=== PATIENT | male | born 1935 | race American Indian/Alaskan Native ===

== ENCOUNTER 2018-04-17 17:20 | Inpatient (IN) | payer SELFPAY ==
[2018-04-17] MEDS ORDERED: D50W (25GM) Syringe IV ONE ×2 (17:27→17:33)
--- NOTE | 2018-04-17 17:42 | Emergency Department Report ---
HPI - General Time Seen by Provider: 04/17/18 17:27 - [facility] HPI: Room 22 The patient is an 82-year-old male presented with a chief complaint altered mental status. Per EMS the patient's last normal time was 09:00 the patient's daughter went to work. She returned at approximately 16:30 to find the patient slumped over in a chair. Per EMS the patient has been nonverbal and does not move the left side. EMS Accu-Chek was 42. Upon arrival to the ED left EJ IV was placed by myself and one amp of D50 was administered and the patient became A and O 4. Patient states he did not eat his breakfast/food today secondary to a sore throat. Patient states she began to feel "out of it" at approximately 14:00. Patient states she's had a productive cough for one day otherwise he d enies complaints currently Location: Mental state Duration: [See above] Quality: Unresponsive Severity: Severe Modifying factors: [see above] Context: [see above] Mode of transportation: [not driving] ED Past Medical Hx - Past Medical History Hx Diabetes: Yes - Surgical History Past Surgical History?: No - Social History Smoking Status: Never Smoker Substance Use Type: None ED Review of Systems ROS: Stated complaint: POSSIBLE STROKE Other details as noted in HPI Constitutional: no symptoms reported Eyes: denies: eye pain ENT: throat pain Respiratory: cough Cardiovascular: denies: chest pain Endocrine: other Gastrointestinal: denies: abdominal pain Genitourinary: denies: dysuria Musculoskeletal: denies: back pain Skin: denies: lesions (hypoglycemia) Neurological: other (altered mental status) Physical Exam - Physical Exam Physical Exam: GENERAL: The patient is well-developed well-nourished male lying on EMS stretche r unresponsive to verbal or tactile stimuli. After administration of D50 patient is a and O 4 and in no acute distress HEENT: Normocephalic. Atraumatic. Extraocular motions are intact. Patient has moist mucous membranes. NECK: Supple. Trachea midline CHEST/LUNGS: Clear to auscultation. There is no respiratory distress noted. HEART/CARDIOVASCULAR: Regular. There is no tachycardia. There is no gallop rub or murmur. ABDOMEN: Abdomen is soft, nontender. Patient has normal bowel sounds. There is no abdominal distention. SKIN: There is no rash. There is no edema. There is no diaphoresis. NEURO: The patient is awake, alert, and oriented. The patient is cooperative. The patient has no focal neurologic deficits. The patient has normal speech. Cranial nerves II through XII grossly intact, no drift. Instrumentation And Control Technician equal bilaterally. Moves all extremities well MUSCULOSKELETAL: There is no evidence of acute injury. ED Medical Decision Making - Lab Data Result diagrams: 04/17/18 17:54 04/17/18 17:54 Laboratory Tests 04/17/18 04/17/18 04/17/18 17:54 17:54 17:54 WBC 6.4 RBC 3.97 Hgb 10.1 L Hct 31.5 L MCV 79 L MCH 26 L MCHC 32 RDW 15.3 H Wilson % (Auto) New Product Trainer PT 13.1 INR 0.95 APTT 26.2 Sodium 138 Potassium 4.2 Chloride 98.5 Carbon Dioxide 21 L Anion Gap 23 BUN 48 H Creatinine 2.0 H Estimated GFR 39 BUN/Creatinine Ratio 24 Glucose 162 H Calcium 8.7 Total Bilirubin 0.20 AST 34 ALT 23 Alkaline Phosphatase 71 Total Creatine Kinase 127 CK-MB (CK-2) 1.6 CK-MB (CK-2) Rel Index 1.2 Troponin T < 0.010 NT-Pro-B Natriuret Pep 322.4 Total Protein 7.9 Albumin 4.0 Albumin/Globulin Ratio 1.0 - Radiology Data Radiology results: report reviewed (chest x-ray), image reviewed (chest x-ray) interpreted by me: Chest x-ray-no focal infiltrates, no pneumothorax [facility] [address] [place] [address] XRay Report Signed Patient: RUSTY STEELE MR#: [id number] : 1935 Acct:[id number] Age/Sex: 82 / M ADM Date: 04/17/18 Loc: ED Attending Dr: Ordering Physician: TAYLA WAGNER MD Date of Service: 04/17/18 Procedure(s): XR chest 1V ap Accession Number(s): [id number] cc: TAYLA WAGNER MD Fluoro Time In Minutes: FINAL REPORT EXAM: XR CHEST 1V AP HISTORY: cough TECHNIQUE: upright single view chest PRIORS: None. FINDINGS: Cardiac and mediastinal contours are unremarkable. No focal pulmonary infiltrate is identified. No pleural fluid collection seen. Pulmonary vasculature is unremarkable. IMPRESSION: Negative single-view chest Transcribed By: HI Dictated By: KIRK ZUNIGA MD Electronically Authenticated By: KIRK ZUNIGA MD Signed Date/Time: 04/17/181829 DD/ 31 TD/TT: 04/17/181831 - Differential Diagnosis hypoglycemia Critical care attestation.: If time is entered above; I have spent that time in minutes in the direct care of this critically ill patient, excluding procedure time. ED Disposition Clinical Impression: Hypoglycemia, Altered mental status Disposition: DC-09 OP ADMIT IP TO THIS HOSP Is pt being admited?: Yes Does the pt Need Aspirin: Yes Condition: Fair Referrals: PRIMARY CARE, [Primary Care Provider] - 3-5 Days Time of Disposition: 18:49 (hospitalist notified (Dr Tyler))
[2018-04-17 18:10] LABS: Hematocrit 31.5 % (35.5-45.6); Hemoglobin 10.1 gm/dl (11.8-15.2); Mean Corpuscular HGB Conc 32 % (32-34); Mean Corpuscular Volume 79 fl (84-94); Red Blood Count 3.97 M/mm3 (3.65-5.03); Red Cell Distribution Width 15.3 % (13.2-15.2)
[2018-04-17 18:12] LABS: Mean Corpuscular Hemoglobin 26 pg (28-32)
[2018-04-17 18:15] LABS: INR 0.95 (0.87-1.13)
[2018-04-17 18:16] LABS: Partial Thromboplastin Time 26.2 Sec. (24.2-36.6)
--- NOTE | 2018-04-17 18:30 | XRay Report ---
FINAL REPORT EXAM: XR CHEST 1V AP HISTORY: cough TECHNIQUE: upright single view chest PRIORS: None. FINDINGS: Cardiac and mediastinal contours are unremarkable. No focal pulmonary infiltrate is identified. No pleural fluid collection seen. Pulmonary vasculature is unremarkable. IMPRESSION: Negative single-view chest
[2018-04-17 18:32] LABS: Creatine Kinase MB 1.6 ng/mL (0.0-4.0)
[2018-04-17 18:35] LABS: Alanine Aminotransferase 23 units/L (7-56); BUN/Creatinine Ratio 24; Blood Urea Nitrogen 48 mg/dL (9-20); Calcium 8.7 mg/dL (8.4-10.2); Hemolysis Index 7
[2018-04-17 18:57] LABS: Basophils % (Manual) 0 % (0.0-1.8); Eosinophils % (Manual) 0 % (0.0-4.3); RBC Morphology Normal; Total Cells Counted 100
[2018-04-17 19:05] LABS: Platelet Count 236 K/mm3 (140-440)
--- NOTE | 2018-04-17 19:20 | History and Physical Report ---
History of Present Illness Chief complaint: confused History of present illness: 82 YO Male with DM, Obesity presents to ED for evaluation. Pt is confused and unable to provide history. Pt history taken history taken from ED staff, and EMS. As per staff, the patient was found confused, and slumped over in his chair by his daughter around 1630hrs. EMS notified and upon arrival the patient was found to be confused, and hypoglycemic with serum glucose of 42. A code stroke was called, due to weakness, and the patient was transported to [facility] for further care and evaluation. Pt seen and evaluated in ED and was found to have Encephalopathy as well ad Acute Renal Failure. Pt symptoms improved with D50. Pt admitted to [facility] Past History Past Medical History: diabetes, other (Obesity) Past Surgical History: No surgical history (reviewed) Social history: single. denies: smoking, alcohol abuse, prescription drug abuse Family history: diabetes, hypertension Medications and Allergies Active Meds: Active Medications Sodium Chloride (Nacl 0.45%) 1,000 mls @ 200 mls/hr IV DIRECT JANET Review of Systems ROS unobtainable: due to mental status Exam - Constitutional Vitals: Temp Pulse Resp BP Pulse Ox 98.3 F 98 H 161/69 98 04/17/18 17:20 04/17/18 17:20 04/17/18 17:20 04/17/18 17:20 General appearance: Present: mild distress, obese - EENT Eyes: Present: PERRL, miosis ENT: hearing intact, clear oral mucosa - Neck Neck: Present: supple, normal ROM - Respiratory Respiratory effort: normal Respiratory: bilateral: CTA - Cardiovascular Heart Sounds: Present: S1 & S2. Absent: rub, click - Extremities Extremities: pulses symmetrical, No edema Peripheral Pulses: within normal limits - Abdominal General gastrointestinal: Present: soft, non-tender, non-distended, normal bowel sounds Male genitourinary: Present: normal - Integumentary Integumentary: Present: clear, warm, dry - Musculoskeletal Musculoskeletal: generalized weakness - Psychiatric Psychiatric: no memory intact - Neurologic Neurologic: CNII-XII intact, moves all extremities Results - Labs CBC & Chem 7: 04/17/18 17:54 04/17/18 17:54 Labs: Abnormal lab results 04/17/18 04/17/18 Range/Units 17:54 17:54 Hgb 10.1 L (11.8-15.2) gm/dl Hct 31.5 L (35.5-45.6) % MCV 79 L (84-94) fl MCH 26 L (28-32) pg RDW 15.3 H (13.2-15.2) % Lymphocytes % (Manual) 11.0 L (13.4-35.0) % Monocytes % (Manual) 25.0 H (0.0-7.3) % Lymphocytes # (Manual) 0.7 L (1.2-5.4) K/mm3 Monocytes # (Manual) 1.6 H (0.0-0.8) K/mm3 Carbon Dioxide 21 L (22-30) mmol/L BUN 48 H (9-20) mg/dL Creatinine 2.0 H (0.8-1.5) mg/dL Glucose 162 H (75-100) mg/dL Assessment and Plan - Patient Problems (1) Encephalopathy Current Visit: Yes Status: Acute Plan to address problem: neuro checks, D 50, supportive care, CT head, neuro checks, (2) ARF (acute renal failure) with tubular necrosis Current Visit: Yes Status: Acute Plan to address problem: IVF resuscitation therapy, monitor uop q shift, repeat bmp to monitor serum creatnine, (3) Diabetes Current Visit: Yes Status: Acute Plan to address problem: ADA diet, insulin, accu check (4) DVT prophylaxis Current Visit: Yes Status: Acute Plan to address problem: SCD to BLE while in bed.
[2018-04-17] MEDS ORDERED: ZOFRAN IV PRN (19:21)
[2018-04-17] MEDS ORDERED: SODIUM CHLORIDE FLUSH SYRINGE 10 ML IV PRN (19:21)
[2018-04-17] MEDS ORDERED: NACL 0.45% 1,000 ML IV SCH (20:00)
[2018-04-18] MEDS: TYLENOL PO PRN ×3 (04:08→20:41)
[2018-04-18 05:32] LABS: Bacteria,Urine 2+ /HPF (Negative); Bilirubin,Urine NEG (Negative); Blood,Urine NEG (Negative); Color,Urine Yellow (Yellow); Mucus,Urine FEW /HPF; Protein,Urine <15 mg/dL mg/dL (Negative); Urobilinogen,Urine < 2.0 mg/dL (<2.0)
--- NOTE | 2018-04-18 08:10 | Cat Scan Report ---
CT HEAD WITHOUT CONTRAST: HISTORY: Confusion. TECHNIQUE: Sequential 2.5mm CT images. COMPARISON: none. FINDINGS: Cerebral Parenchyma: Within normal limits. Cerebellum: Within normal limits. Brainstem: Within normal limits. Ventricles: Normal. Sella: Normal. Extra-axial spaces: Normal. Basal Cisterns: Normal. Intracranial Hemorrhage: None. Midline Shift: None. Visualized Orbits: Normal. IMPRESSION: Cranial CT scan within normal limits.
[2018-04-18] MEDS: SODIUM CHLORIDE FLUSH SYRINGE 10 ML IV SCH ×3 (10:18→22:49)
--- NOTE | 2018-04-18 11:34 | Progress Note ---
Assessment and Plan Assessment and plan: Patient is 82 yo man with a history of hypertension and DM type 2 who presented to [facility] ED with AMS. per Chart: the patient was found confused, and slumped over in his chair by his daughter around 1630hrs. EMS notified and upon arrival the patient was found to be confused, and hypoglycemic with serum glucose of 42. A code stroke was called, due to weakness, and the patient was transported to [facility] for further care and evaluation. Pt seen and evaluated in ED and was found to have Encephalopathy as well ad Acute Renal Failure. Pt symptoms improved with D50. Pt admitted to [facility] * pCXR negative * CT head negative - Acute metabolic Encephalopathy Current Visit: Yes Status: Acute Plan to address problem: neuro checks, D 50, supportive care, CT head, neuro checks, - ARF (acute renal failure) with tubular necrosis Current Visit: Yes Status: Acute Plan to address problem: IVF resuscitation therapy, monitor uop q shift, repeat bmp to monitor serum creatnine, follow renal ultrasound - Diabetes with hypoglycemia Current Visit: Yes Status: Acute Plan to address problem: ADA diet, insulin, accu check I have asked the nurse to obtain home medications - DVT prophylaxis Current Visit: Yes Status: Acute Plan to address problem: SCD to BLE while in bed. -Mild low grad temp of 100.1F with UTI: start iv rocephin, follow urine ctx, blood ctx History Interval history: Patient was seen and examined. Follow-up on current diagnosis of AMS. Overnight uneventful. Patient denies any chest pain, shortness breath, nausea/vomiting or severe headaches. Imaging, nursing note, chart, labs and old chart reviewed. Discussed with patient. Hospitalist Physical - Physical exam Narrative exam: Gen: WDWN, NAD, Awake, Alert, Orientated x2, missed year; however, after multipl e hints he got the year correct HEENT: NCAT, EOMI, PERRL, OP Clear Neck: supple, no adenopathy, no thyromegaly, no JVD CVS/Heart: RRR, normal S1S2, pulses present bilaterally Chest/Lungs: CTA B, Symmetrical chest expansion, good air entry bilaterally GI/Abdomen: soft, NTND, good bowel sounds, no guarding or rebound /Bladder: no suprapubic tenderness, no CVA or paraspinal tenderness Extermity/Skin: no c/c/e, no obvious rash MSK: FROM x 4 Neuro: CN 2-12 grossly intact, no new focal deficits Psych: calm - Constitutional Vitals: Temp Pulse Resp BP Pulse Ox 98.6 F 104 H 18 115/68 100 04/18/18 07:31 04/18/18 07:31 04/18/18 07:31 04/18/18 07:31 04/18/18 07:31 General appearance: Present: mild distress, obese Results - Labs CBC & Chem 7: 04/17/18 17:54 04/17/18 17:54 Labs: Laboratory Last Values WBC 6.4 K/mm3 (4.5-11.0) 04/17/18 17:54 RBC 3.97 M/mm3 (3.65-5.03) 04/17/18 17:54 Hgb 10.1 gm/dl (11.8-15.2) L 04/17/18 17:54 Hct 31.5 % (35.5-45.6) L 04/17/18 17:54 MCV 79 fl (84-94) L 04/17/18 17:54 MCH 26 pg (28-32) L 04/17/18 17:54 MCHC 32 % (32-34) 04/17/18 17:54 RDW 15.3 % (13.2-15.2) H 04/17/18 17:54 Plt Count 236 K/mm3 (140-440) 04/17/18 17:54 Vilas % (Auto) Armature Repairer 04/17/18 17:54 Add Manual Diff Complete 04/17/18 17:54 Total Counted 100 04/17/18 17:54 Seg Neuts % (Manual) 64.0 % (40.0-70.0) 04/17/18 17:54 Band Neutrophils % 0 % 04/17/18 17:54 Lymphocytes % (Manual) 11.0 % (13.4-35.0) L 04/17/18 17:54 Reactive Lymphs % (Man) 0 % 04/17/18 17:54 Monocytes % (Manual) 25.0 % (0.0-7.3) H 04/17/18 17:54 Eosinophils % (Manual) 0 % (0.0-4.3) 04/17/18 17:54 Basophils % (Manual) 0 % (0.0-1.8) 04/17/18 17:54 Metamyelocytes % 0 % 04/17/18 17:54 Myelocytes % 0 % 04/17/18 17:54 Promyelocytes % 0 % 04/17/18 17:54 Blast Cells % 0 % 04/17/18 17:54 Nucleated RBC % Not Reportable 04/17/18 17:54 Seg Neutrophils # Man 4.1 K/mm3 (1.8-7.7) 04/17/18 17:54 Band Neutrophils # 0.0 K/mm3 04/17/18 17:54 Lymphocytes # (Manual) 0.7 K/mm3 (1.2-5.4) L 04/17/18 17:54 Abs React Lymphs (Man) 0.0 K/mm3 04/17/18 17:54 Monocytes # (Manual) 1.6 K/mm3 (0.0-0.8) H 04/17/18 17:54 Eosinophils # (Manual) 0.0 K/mm3 (0.0-0.4) 04/17/18 17:54 Basophils # (Manual) 0.0 K/mm3 (0.0-0.1) 04/17/18 17:54 Metamyelocytes # 0.0 K/mm3 04/17/18 17:54 Myelocytes # 0.0 K/mm3 04/17/18 17:54 Promyelocytes # 0.0 K/mm3 04/17/18 17:54 Blast Cells # 0.0 K/mm3 04/17/18 17:54 WBC Morphology Not Reportable 04/17/18 17:54 Hypersegmented Neuts Not Reportable 04/17/18 17:54 Hyposegmented Neuts Not Reportable 04/17/18 17:54 Hypogranular Neuts Not Reportable 04/17/18 17:54 Smudge Cells Not Reportable 04/17/18 17:54 Toxic Granulation Not Reportable 04/17/18 17:54 Toxic Vacuolation Not Reportable 04/17/18 17:54 Dohle Bodies Not Reportable 04/17/18 17:54 Pelger-Huet Anomaly Not Reportable 04/17/18 17:54 José Rods Not Reportable 04/17/18 17:54 Platelet Estimate Not Reportable 04/17/18 17:54 Clumped Platelets Not Reportable 04/17/18 17:54 Plt Clumps, EDTA Not Reportable 04/17/18 17:54 Large Platelets Not Reportable 04/17/18 17:54 Giant Platelets Not Reportable 04/17/18 17:54 Platelet Satelliting Not Reportable 04/17/18 17:54 Plt Morphology Comment Not Reportable 04/17/18 17:54 RBC Morphology Normal 04/17/18 17:54 Dimorphic RBCs Not Reportable 04/17/18 17:54 Polychromasia Not Reportable 04/17/18 17:54 Hypochromasia Not Reportable 04/17/18 17:54 Poikilocytosis Not Reportable 04/17/18 17:54 Anisocytosis Not Reportable 04/17/18 17:54 Microcytosis Not Reportable 04/17/18 17:54 Macrocytosis Not Reportable 04/17/18 17:54 Spherocytes Not Reportable 04/17/18 17:54 Pappenheimer Bodies Not Reportable 04/17/18 17:54 Sickle Cells Not Reportable 04/17/18 17:54 Target Cells Not Reportable 04/17/18 17:54 Tear Drop Cells Not Reportable 04/17/18 17:54 Ovalocytes Not Reportable 04/17/18 17:54 Helmet Cells Not Reportable 04/17/18 17:54 [place] Bodies Not Reportable 04/17/18 17:54 Pe Ell Rings Not Reportable 04/17/18 17:54 Ese Cells Not Reportable 04/17/18 17:54 Bite Cells Not Reportable 04/17/18 17:54 Crenated Cell Not Reportable 04/17/18 17:54 Elliptocytes Not Reportable 04/17/18 17:54 Acanthocytes (Spur) Not Reportable 04/17/18 17:54 Rouleaux Not Reportable 04/17/18 17:54 Hemoglobin C Crystals Not Reportable 04/17/18 17:54 Schistocytes Not Reportable 04/17/18 17:54 Malaria parasites Not Reportable 04/17/18 17:54 Amadeo Bodies Not Reportable 04/17/18 17:54 Hem Pathologist Commnt No 04/17/18 17:54 PT 13.1 Sec. (12.2-14.9) 04/17/18 17:54 INR 0.95 (0.87-1.13) 04/17/18 17:54 APTT 26.2 Sec. (24.2-36.6) 04/17/18 17:54 Sodium 138 mmol/L (137-145) 04/17/18 17:54 Potassium 4.2 mmol/L (3.6-5.0) 04/17/18 17:54 Chloride 98.5 mmol/L (98-107) 04/17/18 17:54 Carbon Dioxide 21 mmol/L (22-30) L 04/17/18 17:54 Anion Gap 23 mmol/L 04/17/18 17:54 BUN 48 mg/dL (9-20) H 04/17/18 17:54 Creatinine 2.0 mg/dL (0.8-1.5) H 04/17/18 17:54 Estimated GFR 39 ml/min 04/17/18 17:54 BUN/Creatinine Ratio 24 % 04/17/18 17:54 Glucose 162 mg/dL (75-100) H 04/17/18 17:54 POC Glucose 107 (70-105) H 04/17/18 20:36 Calcium 8.7 mg/dL (8.4-10.2) 04/17/18 17:54 Total Bilirubin 0.20 mg/dL (0.1-1.2) 04/17/18 17:54 AST 34 units/L (5-40) 04/17/18 17:54 ALT 23 units/L (7-56) 04/17/18 17:54 Alkaline Phosphatase 71 units/L (35-129) 04/17/18 17:54 Total Creatine Kinase 127 units/L (55-170) 04/17/18 17:54 CK-MB (CK-2) 1.6 ng/mL (0.0-4.0) 04/17/18 17:54 CK-MB (CK-2) Rel Index 1.2 (0-4) 04/17/18 17:54 Troponin T < 0.010 ng/mL (0.00-0.029) 04/17/18 17:54 NT-Pro-B Natriuret Pep 322.4 pg/mL (0-900) 04/17/18 17:54 Total Protein 7.9 g/dL (6.3-8.2) 04/17/18 17:54 Albumin 4.0 g/dL (3.9-5) 04/17/18 17:54 Albumin/Globulin Ratio 1.0 % 04/17/18 17:54 Urine Color Yellow (Yellow) 04/18/18 05:00 Urine Turbidity Slightly-cloudy (Clear) 04/18/18 05:00 Urine pH 5.0 (5.0-7.0) 04/18/18 05:00 Ur Specific [place] 1.009 (1.003-1.030) 04/18/18 05:00 Urine Protein <15 mg/dl mg/dL (Negative) 04/18/18 05:00 Urine Glucose (UA) Neg mg/dL (Negative) 04/18/18 05:00 Urine Ketones Neg mg/dL (Negative) 04/18/18 05:00 Urine Blood Neg (Negative) 04/18/18 05:00 Urine Nitrite Neg (Negative) 04/18/18 05:00 Urine Bilirubin Neg (Negative) 04/18/18 05:00 Urine Urobilinogen < 2.0 mg/dL (<2.0) 04/18/18 05:00 Ur Leukocyte Esterase Mod (Negative) 04/18/18 05:00 Urine WBC (Auto) 40.0 /HPF (0.0-6.0) H 04/18/18 05:00 Urine RBC (Auto) 1.0 /HPF (0.0-6.0) 04/18/18 05:00 U Epithel Cells (Auto) < 1.0 /HPF (0-13.0) 04/18/18 05:00 Urine Bacteria (Auto) 2+ /HPF (Negative) 04/18/18 05:00 Urine Mucus Few /HPF 04/18/18 05:00
[2018-04-18] MEDS ORDERED: D50W (25GM) Syringe IV PRN (12:00)
[2018-04-18] MEDS: ROCEPHIN/NS 1 GM/50 ML 1 GM/50 ML BAG IV SCH (14:11)
[2018-04-18 14:27] LABS: Iron 27 ug/dL (49-181)
[2018-04-18 14:28] LABS: Total Iron Binding Capacity 224 mcg/dL (250-450)
--- NOTE | 2018-04-18 18:55 | Ultrasound Report ---
FINAL REPORT PROCEDURE: US RENAL BILAT TECHNIQUE: Real-time sonography in multiple planes of the kidneys, ureters and urinary bladder was p erformed with image documentation. CPT 11178 HISTORY: Acute renal failure COMPARISON: No prior studies are available for comparison. FINDINGS: RIGHT kidney: Normal echotexture. No hydronephrosis. There are 2 simple cysts present. Larger cyst me asures up to 2.6 centimeters. Length: 11.3 cm. LEFT kidney: There is a simple cyst in the upper pole which measures up to 2.6 centimeters. No hydron ephrosis. Length: 10.9cm. Bladder: Normal. IMPRESSION: Bilateral renal cysts. No hydronephrosis bilaterally.
[2018-04-18] MEDS: HumaLOG SUB-Q SCH (22:49)
[2018-04-19] MEDS: HumaLOG SUB-Q SCH ×4 (09:03→23:12)
[2018-04-19] MEDS: ROCEPHIN/NS 1 GM/50 ML 1 GM/50 ML BAG IV SCH (10:21)
[2018-04-19] MEDS: SODIUM CHLORIDE FLUSH SYRINGE 10 ML IV SCH ×2 (10:21→23:15)
[2018-04-19] MEDS ORDERED: ULTRAM PO PRN (14:08)
[2018-04-19] MEDS ORDERED: GUAIFENESIN 400 MG PO PRN (14:08)
--- NOTE | 2018-04-19 14:18 | Progress Note ---
Assessment and Plan Assessment and plan: Patient is 82 yo man with a history of hypertension and DM type 2 who presented to [facility] ED with AMS. per Chart: the patient was found confused, and slumped over in his chair by his daughter around 1630hrs. EMS notified and upon arrival the patient was found to be confused, and hypoglycemic with serum glucose of 42. A code stroke was called, due to weakness, and the patient was transported to [facility] for further care and evaluation. Pt seen and evaluated in ED and was found to have Encephalopathy as well ad Acute Renal Failure. Pt symptoms improved with D50. Pt admitted to [facility] pCXR negative CT head negative - Acute metabolic Encephalopathy, likely due to hypoglycemia dc glipizide, A1c 7.3. Dextrose as needed - ARF (acute renal failure) with tubular necrosis renal ultrasound wnl, continue IV fluids, follow-up BMP in the morning Afib with RVR Restart home dose of metoprolol - Diabetes with hypoglycemia Discontinue glipizide, dextrose as needed, A1c 7.3 microcytic anemia: follow up on iron studies, ferritin, fobt - DVT prophylaxis SCD to BLE while in bed. UTI; cont rocephin, fup urine cx History Interval history: Review of systems Constitutional: No fevers, no malaise, no joint pains CVS: No chest pain, no orthopnea, no dyspnea on exertion, no pedal edema GI: No abdominal pain, no diarrhea, no vomiting, no constipation Respiratory: No shortness of breath, no wheezing, no coughing Hospitalist Physical - Physical exam Narrative exam: General.: Appears well, no distress, nontoxic HEENT: Moist mucous membranes, extraocular muscles intact, no lymphadenopathy Neck: supple Cardiac: S1-S2 heard Lungs: clear to auscultation bilaterally Abdomen: soft , nontender, nondistended, bowel sounds positive Extremities: no edema clubbing or cyanosis Skin: no rash or lesions Neurologic: no gross focal deficits Psych: appropriate behavior, appropriate mood, corporative, judgment intact - Constitutional Vitals: Temp Pulse Resp BP Pulse Ox 97.9 F 156 H 20 117/73 97 04/19/18 07:58 04/19/18 07:58 04/19/18 07:58 04/19/18 07:58 04/19/18 07:58 General appearance: Present: mild distress, obese Results - Labs CBC & Chem 7: 04/17/18 17:54 04/17/18 17:54 Labs: Laboratory Last Values WBC 6.4 K/mm3 (4.5-11.0) 04/17/18 17:54 RBC 3.97 M/mm3 (3.65-5.03) 04/17/18 17:54 Hgb 10.1 gm/dl (11.8-15.2) L 04/17/18 17:54 Hct 31.5 % (35.5-45.6) L 04/17/18 17:54 MCV 79 fl (84-94) L 04/17/18 17:54 MCH 26 pg (28-32) L 04/17/18 17:54 MCHC 32 % (32-34) 04/17/18 17:54 RDW 15.3 % (13.2-15.2) H 04/17/18 17:54 Plt Count 236 K/mm3 (140-440) 04/17/18 17:54 [place] % (Auto) Automation Tender 04/17/18 17:54 Add Manual Diff Complete 04/17/18 17:54 Total Counted 100 04/17/18 17:54 Seg Neuts % (Manual) 64.0 % (40.0-70.0) 04/17/18 17:54 Band Neutrophils % 0 % 04/17/18 17:54 Lymphocytes % (Manual) 11.0 % (13.4-35.0) L 04/17/18 17:54 Reactive Lymphs % (Man) 0 % 04/17/18 17:54 Monocytes % (Manual) 25.0 % (0.0-7.3) H 04/17/18 17:54 Eosinophils % (Manual) 0 % (0.0-4.3) 04/17/18 17:54 Basophils % (Manual) 0 % (0.0-1.8) 04/17/18 17:54 Metamyelocytes % 0 % 04/17/18 17:54 Myelocytes % 0 % 04/17/18 17:54 Promyelocytes % 0 % 04/17/18 17:54 Blast Cells % 0 % 04/17/18 17:54 Nucleated RBC % Not Reportable 04/17/18 17:54 Seg Neutrophils # Man 4.1 K/mm3 (1.8-7.7) 04/17/18 17:54 Band Neutrophils # 0.0 K/mm3 04/17/18 17:54 Lymphocytes # (Manual) 0.7 K/mm3 (1.2-5.4) L 04/17/18 17:54 Abs React Lymphs (Man) 0.0 K/mm3 04/17/18 17:54 Monocytes # (Manual) 1.6 K/mm3 (0.0-0.8) H 04/17/18 17:54 Eosinophils # (Manual) 0.0 K/mm3 (0.0-0.4) 04/17/18 17:54 Basophils # (Manual) 0.0 K/mm3 (0.0-0.1) 04/17/18 17:54 Metamyelocytes # 0.0 K/mm3 04/17/18 17:54 Myelocytes # 0.0 K/mm3 04/17/18 17:54 Promyelocytes # 0.0 K/mm3 04/17/18 17:54 Blast Cells # 0.0 K/mm3 04/17/18 17:54 WBC Morphology Not Reportable 04/17/18 17:54 Hypersegmented Neuts Not Reportable 04/17/18 17:54 Hyposegmented Neuts Not Reportable 04/17/18 17:54 Hypogranular Neuts Not Reportable 04/17/18 17:54 Smudge Cells Not Reportable 04/17/18 17:54 Toxic Granulation Not Reportable 04/17/18 17:54 Toxic Vacuolation Not Reportable 04/17/18 17:54 Dohle Bodies Not Reportable 04/17/18 17:54 Pel[place]uet Anomaly Not Reportable 04/17/18 17:54 José Rods Not Reportable 04/17/18 17:54 Platelet Estimate Not Reportable 04/17/18 17:54 Clumped Platelets Not Reportable 04/17/18 17:54 Plt Clumps, EDTA Not Reportable 04/17/18 17:54 Large Platelets Not Reportable 04/17/18 17:54 Giant Platelets Not Reportable 04/17/18 17:54 Platelet Satelliting Not Reportable 04/17/18 17:54 Plt Morphology Comment Not Reportable 04/17/18 17:54 RBC Morphology Normal 04/17/18 17:54 Dimorphic RBCs Not Reportable 04/17/18 17:54 Polychromasia Not Reportable 04/17/18 17:54 Hypochromasia Not Reportable 04/17/18 17:54 Poikilocytosis Not Reportable 04/17/18 17:54 Anisocytosis Not Reportable 04/17/18 17:54 Microcytosis Not Reportable 04/17/18 17:54 Macrocytosis Not Reportable 04/17/18 17:54 Spherocytes Not Reportable 04/17/18 17:54 Pappenheimer Bodies Not Reportable 04/17/18 17:54 Sickle Cells Not Reportable 04/17/18 17:54 Target Cells Not Reportable 04/17/18 17:54 Tear Drop Cells Not Reportable 04/17/18 17:54 Ovalocytes Not Reportable 04/17/18 17:54 Helmet Cells Not Reportable 04/17/18 17:54 [place] Bodies Not Reportable 04/17/18 17:54 [place] Rings Not Reportable 04/17/18 17:54 [place] Cells Not Reportable 04/17/18 17:54 Bite Cells Not Reportable 04/17/18 17:54 Crenated Cell Not Reportable 04/17/18 17:54 Elliptocytes Not Reportable 04/17/18 17:54 Acanthocytes (Spur) Not Reportable 04/17/18 17:54 Rouleaux Not Reportable 04/17/18 17:54 Hemoglobin C Crystals Not Reportable 04/17/18 17:54 Schistocytes Not Reportable 04/17/18 17:54 Malaria parasites Not Reportable 04/17/18 17:54 Amadeo Bodies Not Reportable 04/17/18 17:54 Hem Pathologist Commnt No 04/17/18 17:54 PT 13.1 Sec. (12.2-14.9) 04/17/18 17:54 INR 0.95 (0.87-1.13) 04/17/18 17:54 APTT 26.2 Sec. (24.2-36.6) 04/17/18 17:54 Sodium 138 mmol/L (137-145) 04/17/18 17:54 Potassium 4.2 mmol/L (3.6-5.0) 04/17/18 17:54 Chloride 98.5 mmol/L (98-107) 04/17/18 17:54 Carbon Dioxide 21 mmol/L (22-30) L 04/17/18 17:54 Anion Gap 23 mmol/L 04/17/18 17:54 BUN 48 mg/dL (9-20) H 04/17/18 17:54 Creatinine 2.0 mg/dL (0.8-1.5) H 04/17/18 17:54 Estimated GFR 39 ml/min 04/17/18 17:54 BUN/Creatinine Ratio 24 % 04/17/18 17:54 Glucose 162 mg/dL (75-100) H 04/17/18 17:54 POC Glucose 189 (70-105) H 04/19/18 11:52 Hemoglobin A1c 7.3 % (4-6) H 04/18/18 13:30 Calcium 8.7 mg/dL (8.4-10.2) 04/17/18 17:54 Iron 27 ug/dL (49-181) L 04/18/18 13:30 TIBC 224 mcg/dL (250-450) L 04/18/18 13:30 Ferritin 384.8 ng/mL (13.0-400.0) 04/18/18 13:30 Total Bilirubin 0.20 mg/dL (0.1-1.2) 04/17/18 17:54 AST 34 units/L (5-40) 04/17/18 17:54 ALT 23 units/L (7-56) 04/17/18 17:54 Alkaline Phosphatase 71 units/L (35-129) 04/17/18 17:54 Total Creatine Kinase 127 units/L (55-170) 04/17/18 17:54 CK-MB (CK-2) 1.6 ng/mL (0.0-4.0) 04/17/18 17:54 CK-MB (CK-2) Rel Index 1.2 (0-4) 04/17/18 17:54 Troponin T < 0.010 ng/mL (0.00-0.029) 04/17/18 17:54 NT-Pro-B Natriuret Pep 322.4 pg/mL (0-900) 04/17/18 17:54 Total Protein 7.9 g/dL (6.3-8.2) 04/17/18 17:54 Albumin 4.0 g/dL (3.9-5) 04/17/18 17:54 Albumin/Globulin Ratio 1.0 % 04/17/18 17:54 Urine Color Yellow (Yellow) 04/18/18 05:00 Urine Turbidity Slightly-cloudy (Clear) 04/18/18 05:00 Urine pH 5.0 (5.0-7.0) 04/18/18 05:00 Ur Specific [place] 1.009 (1.003-1.030) 04/18/18 05:00 Urine Protein <15 mg/dl mg/dL (Negative) 04/18/18 05:00 Urine Glucose (UA) Neg mg/dL (Negative) 04/18/18 05:00 Urine Ketones Neg mg/dL (Negative) 04/18/18 05:00 Urine Blood Neg (Negative) 04/18/18 05:00 Urine Nitrite Neg (Negative) 04/18/18 05:00 Urine Bilirubin Neg (Negative) 04/18/18 05:00 Urine Urobilinogen < 2.0 mg/dL (<2.0) 04/18/18 05:00 Ur Leukocyte Esterase Mod (Negative) 04/18/18 05:00 Urine WBC (Auto) 40.0 /HPF (0.0-6.0) H 04/18/18 05:00 Urine RBC (Auto) 1.0 /HPF (0.0-6.0) 04/18/18 05:00 U Epithel Cells (Auto) < 1.0 /HPF (0-13.0) 04/18/18 05:00 Urine Bacteria (Auto) 2+ /HPF (Negative) 04/18/18 05:00 Urine Mucus Few /HPF 04/18/18 05:00
[2018-04-19] MEDS ORDERED: ROBITUSSIN PO PRN (15:03)
[2018-04-19] MEDS: GLUCOPHAGE PO SCH (17:35)
[2018-04-19] MEDS: LOPRESSOR PO SCH ×2 (17:41→23:14)
[2018-04-19] MEDS ORDERED: NON-FORMULARY (Metformin 1,000 MG) PO SCH (22:00)
[2018-04-19] MEDS ORDERED: KETOTIFEN FUMARATE OU SCH (22:00)
[2018-04-19] MEDS: LASIX PO SCH (23:14)
[2018-04-20 06:14] LABS: Calcium 8.6 mg/dL (8.4-10.2)
[2018-04-20] MEDS: GLUCOPHAGE PO SCH ×2 (08:00→17:59)
[2018-04-20] MEDS ORDERED: NON-FORMULARY (Terazosin Hcl [Terazosin Hcl] 5 MG) PO SCH (10:00)
[2018-04-20] MEDS ORDERED: NON-FORMULARY (Losartan 100 MG) PO SCH (10:00)
[2018-04-20] MEDS ORDERED: [UNRECOGNIZED DRUG - MIXTURE] PO SCH (10:00)
[2018-04-20] MEDS ORDERED: NON-FORMULARY (Atorvastatin 40 MG) PO SCH (10:00)
[2018-04-20] MEDS: HumaLOG SUB-Q SCH ×4 (10:34→22:16)
[2018-04-20] MEDS: MINIPRESS PO SCH (10:35)
[2018-04-20] MEDS: LASIX PO SCH ×2 (10:35→21:39)
[2018-04-20] MEDS: THERAGRAN-M Tab PO SCH (10:35)
[2018-04-20] MEDS: COZAAR PO SCH (10:36)
[2018-04-20] MEDS: FEOSOL PO SCH (10:37)
[2018-04-20] MEDS: PROSCAR PO SCH (10:37)
[2018-04-20] MEDS: ASPIRIN PO SCH (10:37)
[2018-04-20] MEDS: LOPRESSOR PO SCH ×2 (10:37→21:40)
[2018-04-20] MEDS: ROCEPHIN/NS 1 GM/50 ML 1 GM/50 ML BAG IV SCH (10:38)
[2018-04-20] MEDS: SODIUM CHLORIDE FLUSH SYRINGE 10 ML IV SCH ×2 (10:38→21:40)
[2018-04-21 05:58] LABS: Calcium 8.6 mg/dL (8.4-10.2)
[2018-04-21 07:39] LABS: Hyaline Casts,Urine 4 /LPF
[2018-04-21] MEDS: HumaLOG SUB-Q SCH ×2 (09:08→12:19)
[2018-04-21] MEDS: COZAAR PO SCH (09:29)
[2018-04-21] MEDS: LASIX PO SCH (09:29)
[2018-04-21] MEDS: FEOSOL PO SCH (09:29)
[2018-04-21] MEDS: GLUCOPHAGE PO SCH (09:30)
[2018-04-21] MEDS: MINIPRESS PO SCH (09:30)
[2018-04-21] MEDS: THERAGRAN-M Tab PO SCH (09:30)
[2018-04-21] MEDS: PROSCAR PO SCH (09:30)
[2018-04-21] MEDS: ASPIRIN PO SCH (09:30)
[2018-04-21] MEDS: SODIUM CHLORIDE FLUSH SYRINGE 10 ML IV SCH (09:31)
[2018-04-21] MEDS: ROCEPHIN/NS 1 GM/50 ML 1 GM/50 ML BAG IV SCH (09:31)
[2018-04-21] MEDS: LOPRESSOR PO SCH (09:38)
--- NOTE | 2018-04-21 16:19 | Discharge Summary ---
Providers - Providers Date of Admission: 04/17/18 19:21 Attending physician: ARIELA MULLER MD 04/20/18 14:20 Physical Therapy Evaluation and Treat [CONS] Routine Comment: Reason For Exam: ataxia Primary care physician: FILM ARCHIVIST Hospitalization Condition: Fair Hospital course: Patient is 82 yo man with a history of hypertension and DM type 2 who presented to [facility] ED with AMS. per Chart: the patient was found confused, and slumped over in his chair by his daughter around 1630hrs. EMS notified and upon arrival the patient was found to be confused, and hypoglycemic with serum glucose of 42. pCXR negative CT head negative * The patient had hypoglycemia, his A1c was 7.3. Glipizide was discontinued. He received dextrose after which she improved * He also suffered acute on chronic renal failure, he received IV fluids and improved. He was restarted on his home medications for the rest of his chronic conditions. 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 Chronic Afib with RVR hypercoaguable state - Diabetes hypoglycemia anemia of cd UTI; htn Disposition: DC-01 TO HOME OR SELFCARE Time spent for discharge: 33 mins Core Measure Documentation - Palliative Care Palliative Care/ Comfort Measures: Not Applicable - Core Measures Any of the following diagnoses?: none Exam - Constitutional Vitals: Temp Pulse Resp BP Pulse Ox 98.3 F 99 H 20 95/49 96 04/21/18 13:39 04/21/18 13:40 04/21/18 13:39 04/21/18 13:40 04/21/18 13:40 General appearance: Present: no acute distress, well-nourished - EENT Eyes: Present: PERRL ENT: hearing intact, clear oral mucosa - Neck Neck: Present: supple, normal ROM - Respiratory Respiratory effort: normal Respiratory: bilateral: CTA - Cardiovascular Heart Sounds: Present: S1 & S2. Absent: rub, click - Extremities Extremities: pulses symmetrical, No edema Peripheral Pulses: within normal limits - Abdominal General gastrointestinal: Present: soft, non-tender, non-distended, normal bowel sounds Male genitourinary: Present: normal - Integumentary Integumentary: Present: clear, warm, dry - Musculoskeletal Musculoskeletal: gait normal, strength equal bilaterally - Psychiatric Psychiatric: appropriate mood/affect, intact judgment & insight - Neurologic Neurologic: CNII-XII intact, moves all extremities Plan Follow up with: PRIMARY CARE,MD [Primary Care Provider] - 3-5 Days
[2018-04-21 17:23] VITALS: BP 110/60
== END 2018-04-21 17:10 | disposition home or self-care (01) | DRG 682 ==
LOC: ED 17:20 → 2B-ACE 19:21
PROVIDERS: ADMIT Internal Medicine; ATTEND Internal Medicine
DX: N17.0 Acute kidney failure with tubular necrosis (principal); G93.41 Metabolic encephalopathy; N39.0 Urinary tract infection, site not specified; E11.649 Type 2 diabetes mellitus with hypoglycemia without coma; E66.9 Obesity, unspecified; Z68.39 Body mass index [BMI] 39.0-39.9, adult; Z83.3 Family history of diabetes mellitus; Z82.49 Family history of ischemic heart disease and other diseases of the circulatory system; D50.9 Iron deficiency anemia, unspecified; I48.91 Unspecified atrial fibrillation
CPT/HCPCS: 36415; 70450; 71045; 76770; 80048; 80053; 81001; 82550; 82553; 82728; 82962; 83036; 83550; 83880; 84484; 85007; 85025; 85610; 85730; 87040; 93005; 93010; 96374; 99285; G0378; A9270-GY; J0696; J1815